=== PATIENT | male | born 1985 | race Caucasian/White ===

== ENCOUNTER 2025-08-19 13:51 | Outpatient (REF) | payer OTHER, SELFPAY ==
[2025-08-19 19:21] LABS: COVID-19 PCR Negative (Negative); RSV PCR Negative (Negative)
== END 2025-08-19 13:52 | disposition home or self-care (01) ==
LOC: NCHCN 13:51
PROVIDERS: Visit Provider Physician Assistant
DX: R68.89 Other general symptoms and signs (principal)
CPT/HCPCS: 87637